=== PATIENT | female | born 1950 | race Caucasian/White ===

== ENCOUNTER 2017-02-21 21:33 | Emergency (ER) | payer MEDICARE, BC ==
[2017-02-21] MEDS ORDERED: NITROGLYCERIN 0.4 MG TAB.SUBL SUBLINGUAL ONE (21:53)
[2017-02-21] MEDS ORDERED: CLOPIDOGREL BISULFATE 75 MG TABLET PO ONE (21:58)
[2017-02-21 22:06] LABS: BASOPHIL# 0.4 X 10^3uL (0.0-0.1); BASOPHILS 2.2 % (0.0-2.0); EOSINOPHILS 1.9 % (0.0-6.0); EOSINOPHILS# 0.3 X 10^3uL (0.0-0.4); HEMATOCRIT 48.5 % (36.0-48.0); HEMOGLOBIN 16.7 g/dL (12.0-16.0); LYMPHOCYTES 24.4 % (20.0-40.0); LYMPHOCYTES# 4.1 X 10^3uL (0.8-3.8); MEAN CELL VOLUME 89.1 fL (80.0-100.0); MEAN CORPUS. HGB CONCENTRATION 34.5 g/dL (32.0-36.0); MEAN CORPUSCULAR HEMOGLOBIN 30.7 pg (29.0-35.0); MEAN PLATELET VOLUME 11.2 fL (7.4-10.4); MONOCYTES 6.6 % (2.0-10.0); MONOCYTES# 1.1 X 10^3uL (0.2-1.0); RED BLOOD COUNT 5.45 X 10^6uL (4.20-6.10); RED CELL DISTRIBUTION WIDTH 13.6 % (11.5-14.5); WHITE BLOOD COUNT 16.9 X 10^3uL (3.9-10.7)
[2017-02-21] MEDS ORDERED: TENECTEPLASE 50 MG KIT IV ONE (22:12)
[2017-02-21 22:18] LABS: CALCIUM 10.1 mg/dL (8.4-10.2); CREATININE 1.1 mg/dL (0.5-1.0); MAGNESIUM 2.2 mg/dL (1.6-2.3); POTASSIUM 3.2 mmol/L (3.5-5.1)
[2017-02-21 22:20] LABS: NEUTROPHILS 64.9 % (54.0-75.0)
[2017-02-21 22:30] LABS: TROPONIN I 0.015 ng/mL (0.00-0.034)
--- NOTE | 2017-02-22 00:09 | ER PHYSICIAN DOCUMENTATION ---
Physician Documentation [facility] Name:Penelope Casey Age:67 yrs Sex:Female :1950 Arrival Date:02/21/2017 Time:21:33 Bed3 Private MD:Nuria Baum ED, [place] Disposition: 02/21 21:51 Critical Care:. ok Disposition: 02/21/17 21:52 Transfer ordered to [facility]. Diagnosis is Anterior Myocardial Infarction, STEMI. - Reason for transfer: Specialty. 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 - Condition is Critical. - Problem is new. - Symptoms have improved. COBRA Form completed? Transfer - Mode of Transportation Helicopter HPI: 21:47 This 67 yrs old Female presents to ER with complaints of Shortness Of Breath. sc 21:47 The patient or guardian reports chest pain that is located primarily in the anterior sc chest wall. Onset: at 20:00. The pain does not radiate. There has been no movement of pain. Associated signs and symptoms: Pertinent positives: shortness of breath, Pertinent negatives: cough, lower extremity pain, lower extremity swelling, lightheadedness, nausea. The chest pain is described as tightness. Duration: The patient or guardian reports multiple episodes, that wax and wane. Modifying factors: The symptoms are alleviated by nothing. Severity of pain: At its worst the pain was mild in the emergency department the pain is unchanged. Historical: - Allergies: No known drug Allergies; - Home Meds: 1. atorvastatin 40 mg oral tab Unknown once daily 2. amlodipine 5 mg oral tab Unknown once daily - Tetanus: < 10 years. - Ebola Screening: : No symptoms or risks identified at this time. . - Immunization history: Pneumococcal vaccine is up to date, Flu Vaccine < 1 year Vaccine Information Sheet provided pneumococcal vaccine, Flu Vaccine. - Social history: Smoking status: Patient uses tobacco products, current every day smoker. - Code Status:: Full code. ROS: 21:48 Constitutional: Negative for fever, chills, and weight loss. sc Eyes: Negative for injury, pain, redness, and discharge. ENT: Negative for injury, pain, and discharge. Neck: Negative for injury, pain, and swelling. Abdomen/GI: Negative for abdominal pain, nausea, vomiting, diarrhea, and constipation. Back: Negative for injury and pain. MS/Extremity: Negative for injury and deformity. Skin: Negative for injury, rash, and discoloration. 21:48 Neuro: Negative for headache, weakness, numbness, tingling, and seizure. sc 21:48 Cardiovascular: Positive for chest pain. 21:48 Respiratory: Positive for shortness of breath. Exam: Constitutional: This is a well developed, well nourished patient who is awake, alert, and in no acute distress. Head/Face: Normocephalic, atraumatic. Eyes: Pupils equal round and reactive to light, extra-ocular motions intact. Lids and lashes normal. Conjunctiva and sclera are non-icteric and not injected. Cornea within normal limits. Periorbital areas with no swelling, redness, or edema. ENT: Nares patent. No nasal discharge, no septal abnormalities noted. Tympanic membranes are normal and external auditory canals are clear. Oropharynx with no redness, swelling, or masses, exudates, or evidence of obstruction, uvula midline. Mucous membranes moist. Neck: Trachea midline, no thyromegaly or masses palpated, and no cervical lymphadenopathy. Supple, full range of motion without nuchal rigidity, or vertebral point tenderness. No meningismus. Chest/axilla: Normal chest wall appearance and motion. Nontender with no deformity. No lesions are appreciated. Abdomen/GI: Soft, non-tender, with normal bowel sounds. No distension or tympany. No guarding or rebound. No evidence of tenderness throughout. Back: No spinal tenderness. No costovertebral tenderness. Full range of motion. 21:48 Skin: Warm, dry with normal turgor. Normal color with no rashes, no lesions, and no sc evidence of cellulitis. 21:48 Cardiovascular: Rate: normal, Rhythm: regular. 21:48 Respiratory: the patient does not display signs of respiratory distress, Respirations: normal, Breath sounds: are normal, clear throughout. Vital Signs: 21:45 BP 155 / 96; Pulse 88; Resp 18; Temp 97.5; Pulse Ox 91% on R/A; Weight 68.04 kg; Height mk4 5 ft. 6 in. (167.64 cm); Pain 10/10; 22:00 BP 132 / 77; Pulse 76; Resp 17; Pulse Ox 99% on 2 lpm NC; Pain 0/10; mk4 22:20 BP 120 / 76; Pulse 73; Resp 15; Pulse Ox 99% on 2 lpm NC; Pain 0/10; [facility] 02/22 00:06 BP 122 / 73; Pulse 68; Resp 18; Temp 98.5; Pulse Ox 98% 2 lpm ; Pain 0/10; [facility] 02/21 21:45 Body Mass Index 24.21 (68.04 kg, 167.64 cm) [facility] MDM: 02/21 21:35 Patient medically screened. ok 21:49 Differential diagnosis: acute myocardial infarction. Patient took aspirin within the ok past 24 hours. Patient did not receive fibrinolytic due to helicopter AIRCAT. Data reviewed: vital signs, nurses notes, lab test result(s), EKG, radiologic studies, and as a result, I will *Transfer Patient. 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 ECG:. 22:12 ED course: Delay in getting Cardiology paged by Gay so lytics given and patient sc accepted by Dr. Winters in ED at [facility].. 02/21 22:15 Order name: PROTIME/INR [facility] / 22:20 Order name: CBC AUTO DIF, MDIF/RMOR IF IND [facility] / 22:21 Order name: BASIC METABOLIC PANEL [facility] / 22:21 Order name: MAGNESIUM [facility] / 22:30 Order name: TROPONIN I [facility] / 07:49 Order name: CHEST; [place]ING[place] [id number] [facility] / 21:44 Order name: CALL HELICOPTER; Complete Time: 22:12 ok 02/21 21:44 Order name: Continuous Cardiac Monitoring; Complete Time: 22:12 ok 02/21 21:44 Order name: DEFIB PADS - appropriate for specific helicopter; Complete Time: 22:12 ok 02/21 21:44 Order name: EKG - 12 Lead; Complete Time: 22:12 ok 02/21 21:44 Order name: EKG - fax to [phone]; Complete Time: 22:12 ok 02/21 21:44 Order name: IV saline lock X2; Complete Time: 22:12 ok 02/21 21:44 Order name: Oxygen; Complete Time: 22:12 ok 02/21 21:44 Order name: Pulse Ox Continuous; Complete Time: 22:12 sc EC:49 Rate is 73 beats/min. Rhythm is regular. QRS [place] is Normal. GA interval is normal. QRS sc interval is normal. QT interval is normal. No Q waves. T waves are Inverted. ST Segment is elevated in leads III, V2, V3, V4, V5, 2-5mm. Clinical impression: Acute KS. Interpreted by me. Reviewed by me. Dispensed Medications: 20:02 Drug: Tenecteplase 35 mg; Volume: 7 ml; Route: IV; Rate: bolus; Infused Over: 5 mins; mk4 Site: left antecubital; 23:57 Follow up: Response: No adverse reaction mk4 21:45 Drug: Plavix 300 mg PO once for patients <75 years of age - Plavix 300 mg; Route: PO; mk4 23:56 Follow up: Response: No adverse reaction mk4 21:50 Drug: Nitroglycerin 0.4 mg; Route: Sublingual; mk4 23:55 Follow up: Response: No adverse reaction; Pain is decreased mk4 22:09 CANCELLED (Duplicate Order): Tenecteplase 30 mg IV at calculated rate once sc 22:11 Drug: Lopressor 5 mg; Route: IVP; Rate: 5 bolus; Infused Over: 5 mins; Site: left 4 antecubital; 23:56 Follow up: Response: No adverse reaction mk4 22:12 Drug: heparin 60 units/kg; Route: IVP; Rate: 60 bolus; Infused Over: 2 mins; Site: left [facility] antecubital; 23:57 Follow up: Response: No adverse reaction mk4 Critical care time excluding procedures: 21:51 Critical care time: Bedside Care: 35 minutes, Consultation: 10 minutes, Family sc Intervention: 15 minutes. Total time: 60 minutes Signatures: Jarvis Topete MD MD sc Sigrid Fry [facility]
--- NOTE | 2017-02-22 00:09 | ER NURSING DOCUMENTATION ---
Nurse's Notes [facility] Name:Penelope Casey Age:67 yrs Sex:Female :1950 Arrival Date:02/21/2017 Time:21:33 Bed3 Private MD:Nuria Baum Diagnosis:Anterior Myocardial Infarction, STEMI Presentation: 02/21 21:35 Presenting complaint: Patient states: CP, Feels like someone is sitting on my chest. 4 SOB. Transition of care: Home. Notified ED Physician of Dr. Topete notified. 21:35 Method Of Arrival: Walk In [facility] 21:35 Acuity: TELLY 2 [facility] 21:35 Care prior to arrival: ASA 325mg. Activity prior to arrival: Ambulatory @ scene. [facility] Triage Assessment: 21:35 Respiratory: Reports shortness of breath Onset: The symptoms/episode began/occurred 4 gradually, the patient has mild shortness of breath. 22:15 General: Appears distressed, Behavior is anxious. Pain: Complains of pain in [facility] mid-sternal area Pain radiates to right arm and left arm Pain currently is 10 out of 10 on a pain scale. EENT: No deficits noted. Neuro: No deficits noted. Cardiovascular: Capillary refill < 3 seconds Heart tones present Pulses are all present. Reports Diaphoresis Nausea shortness of breath. Respiratory: Airway is patent Trachea midline Respiratory effort is even, unlabored, Respiratory pattern is regular, symmetrical, Breath sounds are clear. GI: No deficits noted. : No deficits noted. Derm: No deficits noted. Musculoskeletal: No deficits noted. Historical: - Allergies: No known drug Allergies; - Home Meds: 1. atorvastatin 40 mg oral tab Unknown once daily 2. amlodipine 5 mg oral tab Unknown once daily - Tetanus: < 10 years. - Ebola Screening: : No symptoms or risks identified at this time. . - Immunization history: Pneumococcal vaccine is up to date, Flu Vaccine < 1 year Vaccine Information Sheet provided pneumococcal vaccine, Flu Vaccine. - Social history: Smoking status: Patient uses tobacco products, current every day smoker. - Code Status:: Full code. Screenin:35 Infectious Disease Risk None. Abuse screen: Denies threats or abuse. Nutritional [facility] screening: No deficits noted. Assessment: 21:35 See Triage Assessment done by same RN. [facility] 22:23 Cardiovascular: Rhythm is IN, ST elevation. mk4 Vital Signs: 21:45 BP 155 / 96; Pulse 88; Resp 18; Temp 97.5; Pulse Ox 91% on R/A; Weight 68.04 kg; Height mk4 5 ft. 6 in. (167.64 cm); Pain 10/10; 22:00 BP 132 / 77; Pulse 76; Resp 17; Pulse Ox 99% on 2 lpm NC; Pain 0/10; mk4 22:20 BP 120 / 76; Pulse 73; Resp 15; Pulse Ox 99% on 2 lpm NC; Pain 0/10; mk4 0605 00:06 BP 122 / 73; Pulse 68; Resp 18; Temp 98.5; Pulse Ox 98% 2 lpm ; Pain 0/10; mk4 02/21 21:45 Body Mass Index 24.21 (68.04 kg, 167.64 cm) 4 ED Course: 02/21 21:35 Patient arrived in ED. jt 21:35 Jarvis Topete MD is Attending Physician. sc 21:35 Nuria Baum MD is Private Physician. jt 21:35 Allergy Band Placed Arm band placed on Bed in low position Call Light in Reach Gowned mk4 Side rails up x2. Family accompanied patient. EKG done per protocol. Labs ordered per protocol. X-ray done. 21:35 Valuables Remains with patient. Cardiac Monitoring On for Nurse Monitoring only. Pulse mk4 Ox - RN Monitoring Only NIBP On - RN Monitoring Only. 21:47 Port Xray Completed. ms 21:51 Sigrid Fry is Primary Nurse. mk4 21:53 Triage completed. mk4 22:22 Inserted peripheral IV: 18 gauge hand. mk4 22:22 Inserted peripheral IV: 20 gauge in left forearm. Oxygen Oxygen administration via mk4 nasal cannula @ 2L/min. Administered Medications: 20:02 Drug: Tenecteplase 35 mg; Volume: 7 ml; Route: IV; Rate: bolus; Infused Over: 5 mins; mk4 Site: left antecubital; 23:57 Follow up: Response: No adverse reaction mk4 21:45 Drug: Plavix 300 mg PO once for patients <75 years of age - Plavix 300 mg; Route: PO; mk4 23:56 Follow up: Response: No adverse reaction 4 21:50 Drug: Nitroglycerin 0.4 mg; Route: Sublingual; mk4 23:55 Follow up: Response: No adverse reaction; Pain is decreased mk4 22:09 CANCELLED (Duplicate Order): Tenecteplase 30 mg IV at calculated rate once dc 22:11 Drug: Lopressor 5 mg; Route: IVP; Rate: 5 bolus; Infused Over: 5 mins; Site: left [facility] antecubital; 23:56 Follow up: Response: No adverse reaction mk4 22:12 Drug: heparin 60 units/kg; Route: IVP; Rate: 60 bolus; Infused Over: 2 mins; Site: left 4 antecubital; 23:57 Follow up: Response: No adverse reaction mk4 Outcome: 21:52 ER care complete, transfer ordered by . dc 22:23 Transferred: Patient will be transferred to: [facility]. Facility mk4 Acceptance Time: February 21, 2017 at 21:50 Patient's face sheet was faxed to accepting facility. Face Sheet included patient's name, address, age, gender, contact information and insurance information. Patient will be transported by: [facility] Helicopter. Report called to: [facility] ED charge 22:23 Condition: stable 02/22 00:08 Patient left the ED. mk4 Signatures: Jarvis Topete MD MD sc Strickland, Mary ms King, Melody mk4 Tennant, Joanne jt
--- NOTE | 2017-02-23 07:16 | RADIOLOGY REPORT ---
A limited single portable view of the chest, without prior films for comparison , demonstrates the heart, vessels and lungs to be unremarkable. No infiltrate, fluid or pneumothorax is seen. IMPRESSION: Unremarkable limited single portable view of the chest. MTDD
== END 2017-02-22 00:09 | disposition short-term general hospital (02) ==
LOC: ER 21:33
DX: I21.09 ST elevation (STEMI) myocardial infarction involving other coronary artery of anterior wall (principal); R06.02 Shortness of breath; Z79.899 Other long term (current) drug therapy
CPT/HCPCS: 71010; 80048; 83735; 84484; 85025; 85610; 92977; 93010; 96374; 96375; 99291; 99292; J3101

== ENCOUNTER 2017-04-08 20:42 | Emergency (ER) | payer MEDICARE, BC ==
[2017-04-08 21:18] LABS: HEMATOCRIT 46.5 % (36.0-48.0); HEMOGLOBIN 15.9 g/dL (12.0-16.0); MEAN CORPUSCULAR HEMOGLOBIN 31.2 pg (29.0-35.0); RED BLOOD COUNT 5.09 X 10^6uL (4.20-6.10); WHITE BLOOD COUNT 10.7 X 10^3uL (3.9-10.7)
[2017-04-08 21:19] LABS: BASOPHILS 0.1 % (0.0-2.0); EOSINOPHILS 2.6 % (0.0-6.0); LYMPHOCYTES 29.7 % (20.0-40.0); MEAN CORPUS. HGB CONCENTRATION 34.2 g/dL (32.0-36.0); MEAN PLATELET VOLUME 10.5 fL (7.4-10.4); MONOCYTES 6.1 % (2.0-10.0); RED CELL DISTRIBUTION WIDTH 12.6 % (11.5-14.5)
[2017-04-08 21:20] LABS: LYMPHOCYTES# 3.2 X 10^3uL (0.8-3.8); MONOCYTES# 0.7 X 10^3uL (0.2-1.0); NEUTROPHILS# 6.5 X 10^3uL (2.6-6.7)
[2017-04-08 21:24] LABS: CALCIUM 9.7 mg/dL (8.4-10.2); MAGNESIUM 1.8 mg/dL (1.6-2.3); POTASSIUM 3.5 mmol/L (3.5-5.1)
[2017-04-08] MEDS ORDERED: NORMAL SALINE 500 ML IV ONE (21:24)
[2017-04-08 21:40] LABS: TROPONIN I 0.054 ng/mL (0.00-0.034)
[2017-04-08 22:36] LABS: URINE MUCUS NONE SEEN (Up to 25%); URINE RBC NONE SEEN (0-5/hpf)
[2017-04-08 22:54] LABS: URINE APPEARANCE SLIGHTLY CLOUDY; URINE BILIRUBIN NEGATIVE (NEGATIVE); URINE COLOR YELLOW; URINE GLUCOSE NORMAL (NEGATIVE); URINE KETONE NEGATIVE (NEGATIVE); URINE LEUKOCYTE ESTERASE 25 WBC/uL (1+) (NEGATIVE); URINE NITRITE NEGATIVE (NEGATIVE); URINE PROTEIN NEGATIVE (NEG - TRACE); URINE SPECIFIC GRAVITY 1.015 (0.001-1.035); URINE UROBILINOGEN 0.2mg/dL (Normal) (NEG-1mg/dL)
[2017-04-08 22:55] LABS: URINE BLOOD TRACE (NEGATIVE); URINE SPERM NONE SEEN; URINE SQUAMOUS EPITHELIAL CELL 0-5/hpf (<= 15/hpf); URINE WBC 0-4/hpf (0-4/hpf)
--- NOTE | 2017-04-09 00:22 | ER PHYSICIAN DOCUMENTATION ---
Physician Documentation [facility] Name:Penelope Casey Age:67 yrs Sex:Female :1950 Arrival Date:04/08/2017 Time:20:42 Bed4 Private MD: Patrice Soto Disposition: 04/08 21:00 Chart complete. cd Disposition: 04/09/17 00:03 Discharged to Home/Self Care. Impression: Syncope - : 2nd to new Medication, Dehydration. - Condition is Good. - Discharge Instructions: BLADDER INFECTION, Female (Adult), DEHYDRATION (6y-Adult), SYNCOPE, Unk Cause. - Prescriptions for Macrobid 100 mg Oral Capsule - take 100 milligram by ORAL route every 12 hours for 10 days; 20 capsule. - Medical Reconciliation form form. - Follow up: Tanvir Singleton MD; When: Today; Reason: Recheck today's complaints, Continuance of care. - Problem is new. - Symptoms are resolved. - Notes: Drink 1 1/2 quarts of water or Gatorade every day. Stop the new Medication (HCTZ / Losartin) Follow up with Dr. Byrd, Contact Representative, at the [facility] tomorrow for recheck. HPI: 20:50 This 67 yrs old Female presents to ER via Walk In with complaints of Syncope. cd 20:50 The patient has experienced syncope, became unresponsive, lost consciousness. Onset: cd The symptom(s)/episode began/occurred acutely, just prior to arrival. Duration: This was a single episode, that lasted 20 second(s). Context: the episode(s) was witnessed, by a significant other, occurred at home, occurred while the patient was sitting, Just prior to the episode the patient experienced lightheadedness. Associated injury: The patient did not suffer any apparent associated injury. Associated signs and symptoms: Pertinent positives: lightheadedness, nausea, Pertinent negatives: abdominal pain, blurred vision, chest pain, combativeness, confusion, diaphoresis, diarrhea, headache, palpitations, seizure, shortness of breath, vomiting. Current symptoms: Currently, the patient is not experiencing any symptoms, no confusion, no dysphasia, no headache, no paralysis, no visual changes. The patient has not experienced similar symptoms in the past. Patient reports having chest pain and an IL in February 2017, 5 weeks ago She was flown to [facility] and underwent Cardiac Catheterization and three Coronary stents were placed. Proximal LAD, Diagonal and OM-1. She has done well since that time. She was started on new BP med yesterday, HCTZ/Losartan combo med. She took her new med yesterday morning and this morning. This evening she took her Metoprolol one hour earlier than usual... roughly one hour ago. She denies chest pain, SOB, severe headache, melena, UTI symptoms, fever or chills before or after the syncopal episode.. Historical: - Allergies: No known drug Allergies; - Home Meds: 1. atorvastatin 40 mg oral tab Unknown once daily 2. Plavix 75 mg oral tab 1 tab once daily 3. metoprolol tartrate 25 mg oral tab 1 tab once daily 4. Hydrochlorothiazide Oral 5. losartan oral - PMHx: MYOCARDIAL INFARCTION; Hypertension; HIGH CHOLESTEROL; - PSHx: CARDIAC STENTS ; - Tetanus: < 10 years. - Ebola Screening: : Patient negative for fever greater than or equal to 101.5 degrees Fahrenheit, and additional compatible Ebola Virus Disease symptoms. - Immunization history: Flu Vaccine < 1 year. - Social history: Smoking status: Patient uses tobacco products, current every day smoker. ROS: 21:05 ENT: Negative for injury, pain, epistaxis and discharge. cd Neck: Negative for injury, pain, stiffness and swelling. Abdomen/GI: Negative for abdominal pain, nausea, vomiting, diarrhea, constipation, distension, melena, hematochezia and hematemesis. Back: Negative for injury, pain or muscle spasms. : Negative for injury, bleeding, discharge, dysuria, frequency, urgency and swelling. MS/Extremity: Negative for injury, deformity, edema, calf tenderness, pain or coldness. 21:05 Skin: Negative for injury, rash, itching and discoloration. cd 21:05 Constitutional: Positive for poor PO intake, Negative for chills, fever. 21:05 Cardiovascular: Negative for chest pain, edema, orthopnea, palpitations, paroxysmal nocturnal dyspnea. 21:05 Respiratory: Negative for hemoptysis, orthopnea, pleurisy, shortness of breath. 21:05 Neuro: Positive for syncope, Negative for altered mental status, gait disturbance, headache, seizure activity, speech changes, visual changes, weakness. 21:05 All other systems are negative. Exam: 21:05 Abdomen/GI: Inspection: abdomen appears normal, Bowel sounds: normal, active, cd Palpation: abdomen is soft and non-tender, Rectal exam: the exam is deferred. 21:05 Eyes: Pupils equal round and reactive to light, extra-ocular motions intact. Lids and lashes normal. Conjunctiva and sclera are non-icteric and not injected. Cornea within normal limits. Periorbital areas with no swelling, redness, or edema. Neck: Trachea midline, no thyromegaly or masses palpated, and no cervical lymphadenopathy. Supple, full range of motion without nuchal rigidity, or vertebral point tenderness. No Meningismus. Chest/axilla: Normal chest wall appearance and motion. Nontender with no deformity. No lesions are appreciated. Abdomen/GI: Soft, non-tender, with normal bowel sounds. No distension or tympany. No guarding or rebound. No evidence of tenderness throughout. Back: No spinal tenderness. No costovertebral tenderness. Full range of motion. Skin: Warm, dry with normal turgor. Normal color with no rashes, no lesions, and no evidence of cellulitis. MS/ Extremity: Pulses equal, no cyanosis. Neurovascular intact. Full, normal range of motion. 21:05 Neuro: Awake and alert, GCS 15, oriented to person, place, time, and situation. Cranial nerves II-XII grossly intact. Motor strength 5/5 in all extremities. Sensory grossly intact. Cerebellar exam normal. Normal gait. 21:05 Constitutional: The patient appears alert, awake, non-diaphoretic, non-toxic, well developed, well nourished, pale. 21:05 ENT: Mouth: Lips: dry, Oral mucosa: dry. 21:05 Cardiovascular: Rate: normal, Rhythm: regular, Pulses: no pulse deficits are appreciated, Heart sounds: normal, JVD: is not appreciated. 21:05 Respiratory: the patient does not display signs of respiratory distress, Respirations: normal, no acute changes, Breath sounds: are normal, clear throughout. Vital Signs: 21:03 BP 119 / 93; Pulse 72; Resp 16; Temp 98.0(TE); Pulse Ox 93% on R/A; Weight 65.77 kg; rh Height 5 ft. 4 in. (162.56 cm); Pain 0/10; 22:10 Pulse 65 MON; Resp 18; Pulse Ox 95% ; rh 22:32 BP 143 / 85; Pulse 65; Resp 17; Pulse Ox 94% on R/A; Pain 0/10; rh 04/09 00:17 BP 137 / 66; Pulse 80; Resp 18; Pulse Ox 99% on R/A; Pain 0/10; bw2 04/08 21:03 Body Mass Index 24.89 (65.77 kg, 162.56 cm) [place] Coma Score: 04/08 21:05 Eye Response: spontaneous(4). Verbal Response: oriented(5). Motor Response: obeys cd commands(6). Total: 15. MDM: 20:45 Patient medically screened. cd 21:00 Data interpreted: car washer: rate is 80 beats/min, rhythm is normal sinus rhythm, cd regular, with no ectopy, Interpretation: normal rate, normal rhythm, Pulse oximetry: on room air is 94 %. Interpretation: normal. Response to treatment: the patient's symptoms have markedly improved after treatment, the patient's condition has returned to base line, and as a result, I will discharge patient. 21:05 Differential Diagnosis: cardiac arrhythmia, drug effect, GI bleed, idiopathic syncope, cd sepsis, vasovagal episode. 23:55 Neurological re-evaluation: normal neurological exam including cranial nerves, cd orientation, mentation, motor and sensory exam, cerebellar testing, GCS normal, and normal gait. Data reviewed: vital signs, nurses notes, old medical records, lab test result(s), EKG, and as a result, I will admit patient, continue to observe the patient, administer IV fluids, NS bolus, NS maintenence, I planned on admitting the patient overnight for observation since she had a slightly elevated Troponin, that sonia slightly upon repeat testing after 2 hours. Her EKG was basically unchanged from her post Cath EKG in February 2017. Dr. Tavarez was consulted and agreed to OBS overnight. The patient adamantly refused admission, even after I explained all the risks of leaving and benefits of staying. I had her sign the AMA form.. Counseling: I had a detailed discussion with the patient and/or guardian regarding: the historical points, exam findings, and any diagnostic results supporting the discharge/admit diagnosis, lab results, the need for outpatient follow up, for a recheck, with the patient's primary care provider, to return to the emergency department if symptoms worsen or persist or if there are any questions or concerns that arise at home. 23:57 ED course: I have recommended that the patient be admitted to [facility] for Telemetry, cd IVF's and repeat EKG and Troponin and Cardiology Consultation. The patient understands that her Troponin is slightly elevated. She is refusing my recommendation for admission. She will follow up with her Contact Representative in the morning.. 04/08 21:21 Order name: CBC AUTO DIF, MDIF/RMOR IF IND; Complete Time: 22:05 EDUT 04/08 22:04 Interpretation: Normal. 04/08 21:41 Order name: BASIC METABOLIC PANEL; Complete Time: 22:05 EDUT 04/08 22:05 Interpretation: Normal Except: GLUCOSE 182; CREATININE 1.4; Hyperglycemia, Chronic cd Renal Insufficiency, Dehydration. 04/08 21:41 Order name: MAGNESIUM; Complete Time: 22:05 EDUT 04/08 22:05 Interpretation: Normal. 04/08 21:41 Order name: TROPONIN I; Complete Time: 22:05 EDUT 04/08 22:05 Interpretation: Abnormal: TROPONIN I 0.054; Mildly elevated. 04/08 22:56 Order name: UA W/ MICRO -CULTURE IF IND; Complete Time: 23:36 EDUT 04/08 23:36 Interpretation: Abnormal: URINE LEUKOCYTE ESTERASE 25 WBC/uL (1+); URINE BLOOD TRACE; cd URINE BACTERIA 20-50 ORGANISMS/hpf; UTI. 04/08 23:49 Order name: TROPONIN I; Complete Time: 00:09 EDUT 04/09 00:09 Interpretation: Abnormal: TROPONIN I 0.062. 04/09 08:33 Order name: URINE CULTURE; Complete Time: 18:58 EDUT 04/08 21:06 Order name: EKG - 12 Lead; Complete Time: 21:07 04/08 21:06 Order name: Cardiac Monitoring - Continuous; Complete Time: 21:07 04/08 21:06 Order name: Pulse Ox Continuous; Complete Time: 21:07 Dispensed Medications: 21:12 Drug: NS 0.9% 400 ml; Route: IV; Rate: bolus; Site: left antecubital; bw2 22:14 Follow up: IV Status: Completed infusion bw2 22:15 Follow up: IV Status: Completed infusion; IV converted to saline lock mv Point of Care Testing: Urine Dip: 22:27 pH: 6.0; ; Specific [place]: 1.020; Ketones: Negative; Glucose: Negative; Protein: mv Negative; Leukocytes: 1 Leuko/?L; Nitrite: Negative ; Blood: Negative; Bilirubin: Negative ; Urobilinogen: Normal Signatures: Patrice Benítez MD MD cd Hofsess, Rachel Julia Flores [facility] raman isabel
--- NOTE | 2017-04-09 00:22 | ER NURSING DOCUMENTATION ---
Nurse's Notes [facility] Name:Penelope Casey Age:67 yrs Sex:Female :1950 Arrival Date:04/08/2017 Time:20:42 Bed4 Private MD: Diagnosis:Syncope-: 2nd to new Medication;Dehydration Presentation: 04/08 20:48 Acuity: TELLY 2 20:48 Presenting complaint: Patient states: Pt had a syncopal episode [employer] she became dizzy, rh diaphoretic and nauseated. Pt has MN in February of this year and had 3 stents placed. Pt denies chest discomfort. Transition of care: Home. 20:48 Method Of Arrival: Walk In Triage Assessment: 21:02 General: Appears in no apparent distress, Behavior is cooperative. Pain: Denies pain. rh EENT: Oral mucosa is moist. Neuro: Level of Consciousness is awake, alert, obeys commands, Reports a syncopal episode. Cardiovascular: Capillary refill < 3 seconds Reports lightheadedness, syncope, Rhythm is sinus rhythm Chest pain is denied. Respiratory: Airway is patent Respiratory effort is even, unlabored, Respiratory pattern is regular, symmetrical. Derm: Skin is intact, is healthy with good turgor, Skin is pale. Musculoskeletal: Circulation, motion, and sensation intact. Historical: - Allergies: No known drug Allergies; - Home Meds: 1. atorvastatin 40 mg oral tab Unknown once daily 2. Plavix 75 mg oral tab 1 tab once daily 3. metoprolol tartrate 25 mg oral tab 1 tab once daily 4. Hydrochlorothiazide Oral 5. losartan oral - PMHx: MYOCARDIAL INFARCTION; Hypertension; HIGH CHOLESTEROL; - PSHx: CARDIAC STENTS ; - Tetanus: < 10 years. - Ebola Screening: : Patient negative for fever greater than or equal to 101.5 degrees Fahrenheit, and additional compatible Ebola Virus Disease symptoms. - Immunization history: Flu Vaccine < 1 year. - Social history: Smoking status: Patient uses tobacco products, current every day smoker. Screenin:04 Infectious Disease Risk None. Abuse screen: Denies threats or abuse. Denies injuries rh from another. Nutritional screening: No deficits noted. Assessment: 21:04 See Triage Assessment done by same RN. Vital Signs: 21:03 BP 119 / 93; Pulse 72; Resp 16; Temp 98.0(TE); Pulse Ox 93% on R/A; Weight 65.77 kg; rh Height 5 ft. 4 in. (162.56 cm); Pain 0/10; 22:10 Pulse 65 MON; Resp 18; Pulse Ox 95% ; rh 22:32 BP 143 / 85; Pulse 65; Resp 17; Pulse Ox 94% on R/A; Pain 0/10; rh 04/09 00:17 BP 137 / 66; Pulse 80; Resp 18; Pulse Ox 99% on R/A; Pain 0/10; bw2 04/08 21:03 Body Mass Index 24.89 (65.77 kg, 162.56 cm) rh Roger Coma Score: 04/08 21:05 Eye Response: spontaneous(4). Verbal Response: oriented(5). Motor Response: obeys cd commands(6). Total: 15. ED Course: 20:44 Patient arrived in ED. dp 20:45 Patrice Benítez MD is Attending Physician. cd 20:48 Triage completed. bw2 20:50 residential monitor on. Pulse ox on. NIBP on. rh 20:52 EKG done. (by ED staff). Reviewed by Patrice Benítez MD. rh 21:00 Claudia Amaya is Primary Nurse. rh 21:01 Inserted peripheral IV: saline lock: 20 gauge in left antecubital area and blood mv collected. 21:04 Notified ED Physician of patient's arrival and chief complaint. Dr. Benítez notified. rh 21:04 Valuables Remains with patient Patient has correct armband on for positive rh identification. Placed in gown. Bed in low position. Call light in reach. Side rails up X 1. 04/09 00:02 Tanvir Singleton MD is Referral Physician. cd Administered Medications: 04/08 21:12 Drug: NS 0.9% 400 ml; Route: IV; Rate: bolus; Site: left antecubital; bw2 22:14 Follow up: IV Status: Completed infusion bw2 22:15 Follow up: IV Status: Completed infusion; IV converted to saline lock mv Point of Care Testing: Urine Dip: 22:27 pH: 6.0; ; Specific [place]: 1.020; Ketones: Negative; Glucose: Negative; Protein: mv Negative; Leukocytes: 1 Leuko/?L; Nitrite: Negative ; Blood: Negative; Bilirubin: Negative ; Urobilinogen: Normal Outcome: 04/09 00:03 Discharge ordered by . mayra 00:17 AMA: AMA form signed Discharged to home ambulatory. bw2 00:17 Condition: stable 00:17 Discharge Assessment: Patient awake, alert and oriented x 3. No cognitive and/or functional deficits noted. Patient verbalized understanding of disposition instructions. 00:17 Discharge instructions given to patient, significant other, Instructed on follow up and referral plans. medication usage, MD Benítez educated pt on the risks of leaving against medical advice. pt understands that she should return to ER if needed. Demonstrated understanding of instructions, medications, Prescriptions given X 1. 00:21 Patient left the ED. bw2 Signatures: Patrice Benítez MD MD cd Hofsess, Rachel rh vogel, margaux mv Wisely, Beth bw2 Laura Helm
[2017-04-09] MEDS ORDERED: NITROFURANTOIN MACROCRYSTAL 100 MG CAPSULE PO ONE (00:25)
== END 2017-04-09 00:22 | disposition home or self-care (01) ==
LOC: ER 20:42
DX: R55 Syncope and collapse (principal); T44.7X5A Adverse effect of beta-adrenoreceptor antagonists, initial encounter; E86.0 Dehydration; R42 Dizziness and giddiness; R11.0 Nausea; R74.8 Abnormal levels of other serum enzymes; N39.0 Urinary tract infection, site not specified; I10 Essential (primary) hypertension; Z95.5 Presence of coronary angioplasty implant and graft; Z79.899 Other long term (current) drug therapy; Z79.02 Long term (current) use of antithrombotics/antiplatelets
CPT/HCPCS: 80048; 81001; 83735; 84484; 85025; 87086; 93005; 93010; 96360; 99284; J7040